=== PATIENT | male | born 1995 | race Caucasian/White ===

== ENCOUNTER 2021-12-04 09:56 | Emergency (ER) | payer MEDICAID, SELFPAY ==
[2021-12-04 10:22] VITALS: BP 138/66; PULSE 64; RESP 16; TEMP 36.6; O2SAT 97; BMI 24.6
[2021-12-04 10:48] LABS: IDNOW Serial# 9DD0AD1C; Strep A Nucleic Acid Negative (Negative)
[2021-12-04 10:56] LABS: COVID-19 Test Negative (Negative)
--- NOTE | 2021-12-04 17:42 | ED.URI ---
HPI - URI/Sore Throat General Chief Complaint: Upper Respiratory Symptoms Stated Complaint: sore throat dry mouth Time Seen by Provider: 12/04/21 11:33 History of Present Illness HPI Narrative: Patient complains of sore throat with mild pain on swallowing for 2 weeks, he otherwise denies any fever or chills or difficulty breathing, no difficulty swallowing just pain on swallowing Related Data Previous Rx's Medication Instructions Recorded cetirizine 10 mg tablet 10 mg PO DAILY PRN #10 tab 12/04/21 penicillin V potassium 500 mg 1,000 mg PO BID 10 Days #40 tab 12/04/21 tablet prednisone 20 mg tablet 60 mg PO DAILY 4 Days #12 tab 12/04/21 Allergies Allergy/AdvReac Type Severity Reaction Status Date / Time No Known Allergies Allergy Verified 12/04/21 11:34 Review of Systems Review of Systems: Positive for sore throat, negatives are no fever no chills no dizziness no weakness no difficulty breathing or swallowing but pain on swallowing no stiff neck no chest pain no shortness of breath no abdominal pain no nausea vomiting no skin rash Yes all other systems are reviewed and are negative [facility] Past Medical History [facility] Narrative: Patient is a smoker Source: nursing notes reviewed Social History Social History Advance Directives: No Advance Directives Information Provided: No Physical Exam Vital Signs: Vital Signs: Last Vital Signs Temp 98 F 12/04/21 10:22 Pulse 64 12/04/21 10:22 Resp 16 12/04/21 10:22 BP 138/66 12/04/21 10:22 Pulse Ox 97 12/04/21 10:22 BMI result Body Mass Index 24.6 General appearance is no acute distress comfortable speaking full sentences relaxed and cooperative The pharynx is red with mildly swollen tonsils no exudate mucous membranes are moist, uvula is midline, voice is normal There is no problems swallowing The neck no masses palpated no lymphadenopathy Chest is clear to auscultation bilateral Heart no murmur Extremities full range of motion x4x Course Course Course Narrative: Well-appearing patient with negative COVID test and negative strep test but very concerned that he may have strep and may need antibiotics is given prescription for antibiotic, steroid for symptomatic relief and advised to follow with primary doctor if symptoms do not resolve MDM - URI/Sore Throat Lab Data Labs: Lab Results 12/04/21 12/04/21 Range/Units 10:31 10:31 COVID-19 (VICKIE) Negative (Negative) COVID-19 Clin Com See Note S. pyogenes GrpA JOVANNI Negative (Negative) Discharge Plan Discharge Clinical Impression: Pharyngitis Patient Disposition: Home, Self-Care Additional Instructions: Your throat was red so we are treating with antibiotic penicillin for possible infection and steroids to reduce inflammation as well as allergy medicines to cover all bases Because or smoker these symptoms continued despite treatment you may need to follow with the primary care doctor for referral to a specialist Return any time any worse condition or concerns Prescriptions: New penicillin V potassium 500 mg tablet 1,000 mg PO BID 10 Days Qty: 40 RF: 0 prednisone 20 mg tablet 60 mg PO DAILY 4 Days Qty: 12 RF: 0 cetirizine 10 mg tablet 10 mg PO DAILY PRN (Reason: allergy symptoms) Qty: 10 RF: 0 Stand Alone Forms: Work/School Release Discharge Date/Time: 12/04/21 12:48
== END 2021-12-04 12:48 | disposition home or self-care (01) ==
LOC: HO.ED 12:01
PROVIDERS: Emergency Provider Emergency Medicine
DX: J02.9 Acute pharyngitis, unspecified (principal); Z20.822 Contact with and (suspected) exposure to COVID-19; F17.200 Nicotine dependence, unspecified, uncomplicated
CPT/HCPCS: 87635; 87651; 99281; 99282; 99283

== ENCOUNTER 2021-12-08 23:35 | Emergency (ER) | payer MEDICAID, SELFPAY ==
--- NOTE | ~2021-12-08 | XR_ITS ---
EXAMINATION: XR CHEST CLINICAL INFORMATION: Chest pain COMPARISON: 03/22/2021 TECHNIQUE: Frontal view of the chest was obtained. FINDINGS: The lungs are well expanded. There is no focal consolidation, edema, or effusion. No pneumothorax. The cardiomediastinal silhouette is within normal limits. No acute osseous abnormality. XR/XR chest 1V IMPRESSION: Clear lungs.
[2021-12-09 00:05] VITALS: BP 117/68; PULSE 70; RESP 20; O2SAT 95; BMI 26.6
[2021-12-09 02:24] VITALS: BP 118/70; PULSE 72; RESP 16; O2SAT 95
--- NOTE | 2021-12-09 03:23 | ECG_ITS ---
Test Reason : CHEST PAIN Blood Pressure : / mmHG Vent. Rate : 064 BPM Atrial Rate : 064 BPM P-R Int : 138 ms QRS Dur : 088 ms QT Int : 394 ms P-R-T Axes : 053 058 032 degrees QTc Int : 406 ms Normal sinus rhythm Early repolarization Normal ECG No previous ECGs available Referred By: Talia Rubio Electronically Signed By:Rayshawn Robbins
--- NOTE | 2021-12-09 03:24 | ED.CHESTPAIN ---
HPI - Chest Pain General Chief Complaint: Chest Pain Stated Complaint: Chest pain Time Seen by Provider: 12/09/21 00:58 History of Present Illness HPI narrative: Patient is 26-year-old male presents today having chest pain. The chest pain is worse when he turns his head to the right. It is associated with movement of the right arm. There is no chest pain with movement of his head to the left. No pain with movement of the left arm. No fever no chills. No nausea no vomiting. No focal weakness. No history of diabetes, hypertension, high cholesterol, smoking, [place]. patient is from home. Related Data Previous Rx's Medication Instructions Recorded cetirizine 10 mg tablet 10 mg PO DAILY PRN #10 tab 12/04/21 penicillin V potassium 500 mg 1,000 mg PO BID 10 Days #40 tab 12/04/21 tablet prednisone 20 mg tablet 60 mg PO DAILY 4 Days #12 tab 12/04/21 ibuprofen 400 mg tablet 400 mg PO Q6H PRN #20 tab 12/09/21 Allergies Allergy/AdvReac Type Severity Reaction Status Date / Time No Known Allergies Allergy Verified 12/04/21 11:34 Review of Systems Review of Systems: No cough no congestion or upper respiratory symptoms Positive chest pain with movement of the right arm or turning his head to the right. No shortness of breath no diaphoresis All system reviewed otherwise negative Yes all other systems are reviewed and are negative [facility] Past Medical History Attestation statement: The following information was validated with the patient. Social History Social History Advance Directives: No Physical Exam Vital Signs: Vital Signs: Last Vital Signs Pulse 72 12/09/21 02:24 Resp 16 12/09/21 02:24 BP 118/70 12/09/21 02:24 Pulse Ox 95 12/09/21 02:24 BMI result Body Mass Index 26.6 Appearance: Alert. Oriented X3. No acute distress. Eyes: Pupils equal, round and reactive to light. ENT: Pharynx normal. Neck: Normal inspection. Neck supple. No lymph nodes noted. No crepitus CVS: Normal heart rate and rhythm. Pulses normal. Normal S1 and S2. Chest pain reproducible with Dr. Respiratory: No respiratory distress. Breath sounds normal. No Wheezing. No rales Abdomen: Soft and nontender. No rigidity. No distention. good BS x4 Skin: Skin warm and dry. Normal skin color. Normal skin turgor. Extremities: No lower extremity edema. Neurovascular intact to all extremities. No Lacerations. No Rash Neuro: Oriented X 3. No motor deficit. No sensory deficit. Moving all extermities. No slurred speech MDM - Chest Pain MDM Narrative Medical decision making narrative: Patient's chest x-ray showed no evidence of pneumonia pneumothorax. EKG showed a sinus pattern heart rate is 65 VT QRS QT within normal limits there is some early repolarization no acute ST segment elevations. Patient well-appearing pain atypical for ACS. No risk factors for PE. Will discharge patient home. Patient's labs from previous exam in. A strep test was negative. No evidence for strep pharyngitis. Will have patient take Motrin. Close follow-up on an outpatient basis. Medical Records Data Attestation: I reviewed the patient's medical records. Lab Data Attestation: I reviewed the patient's lab results. Discharge Plan Discharge Clinical Impression: Atypical chest pain Patient Disposition: Home, Self-Care Instructions: Chest Pain (ED) Prescriptions: New ibuprofen 400 mg tablet 400 mg PO Q6H PRN (Reason: pain) Qty: 20 RF: 0 No Action penicillin V potassium 500 mg tablet 1,000 mg PO BID 10 Days Qty: 40 RF: 0 prednisone 20 mg tablet 60 mg PO DAILY 4 Days Qty: 12 RF: 0 cetirizine 10 mg tablet 10 mg PO DAILY PRN (Reason: allergy symptoms) Qty: 10 RF: 0 Referrals: [facility] [Physician] - 2 days
== END 2021-12-09 04:55 | disposition home or self-care (01) ==
PROVIDERS: Emergency Provider Emergency Medicine Emergency Medical Services
DX: R07.89 Other chest pain (principal)
CPT/HCPCS: 71045; 93005; 99283; 99284

== ENCOUNTER 2022-11-08 15:46 | Emergency (ER) | payer MEDICAID, OTHER, SELFPAY ==
[2022-11-08 16:33] VITALS: BP 130/78; PULSE 112; RESP 18; TEMP 36.9; O2SAT 96; BMI 25.0
--- NOTE | 2022-11-08 16:36 | ED_ITS ---
HPI - Skin/Abscess/Foreign Bdy General Chief complaint: Skin/Abscess/Foreign Body Stated complaint: bump on head Time Seen by Provider: 11/08/22 18:55 Source: patient Mode of arrival: ambulatory Limitations: no limitations History of Present Illness HPI narrative: 27yoM who is Malagasy-speaking presenting to the ED c c/o a lump to his forehead for the past 7 years it has grown in the past week.? He also is requesting for COVID swab due to he was exposed to COVID/flu.? He reports that a person who just [facility] out [facility] he was around them and they are the ones that were positive for COVID possibly.? He denies any other symptoms related to this.? He reports he will also need a work note. complaint: abscess/boil Onset (ago): year(s) ( 7 years worse in the past week) Location: face ( forehead) Severity: mild Quality: aching Pain Consistency: constant Relieving factors: none Exacerbating factors: none and palpation Context: none Associated symptoms: denies other symptoms Treatments prior to arrival: none Related Data Previous Rx's Medication Instructions Recorded cetirizine 10 mg tablet 10 mg PO DAILY PRN allergy 12/04/21 symptoms #10 tabs penicillin V potassium 500 mg 1,000 mg PO BID 10 days #40 tabs 12/04/21 tablet prednisone 20 mg tablet 60 mg PO DAILY 4 days #12 tabs 12/04/21 ibuprofen 400 mg tablet 400 mg PO Q6H PRN pain #20 tabs 12/09/21 Allergies Allergy/AdvReac Type Severity Reaction Status Date / Time No Known Allergies Allergy Verified 12/04/21 11:34 Review of Systems Review of Systems: Constitutional : Denies history of same, Denies any other sites involved, Denies IV drug use, Denies history of MRSA, Denies swollen glands, Denies injury, Denies Fever, Denies Chills, + Sig Pain, Denies Systemic symptoms Cardiovascular : No Chest Pain, No SOB Respiratory : No Dyspnea Gastrointestinal : No abdominal pain Musculoskeletal : No Joint Swelling Skin : + abscess to forehead, No surrounding erythema, No skin laceration, No Foreign bodies, No spreading rash, Denies bites, Denies discharge, Neuro : No Weakness, No Numbness/tingling Psych : No SI/HI/thoughts of self injury Yes all other systems are reviewed and are negative PMFSH Past Medical History Attestation statement: The following information was validated with the patient. Source: old records reviewed and nursing notes reviewed Social History Social History Patient Tobacco Use Status: Never used Tobacco Advance Directives: No Advance Directives Information Provided: No Physical Exam Vital Signs: Vital Signs: Last Vital Signs Temp 98.5 F 11/08/22 16:33 Pulse 112 H 11/08/22 16:33 Resp 18 11/08/22 16:33 BP 130/78 11/08/22 16:33 Pulse Ox 96 11/08/22 16:33 O2 Del Method 11/08/22 16:33 BMI result Body Mass Index 25.0 vital signs have been reviewed as normal and appeared to be correct. Blood pressure normal Heart rate normal. Respiration rate normal. Temperature normal. Oxygen saturation normal. Appearance: Alert. Oriented X3. No acute distress. Head: Normal external exam. Normocephalic. Atraumatic. Eyes: PERRLA. EOMI. Conjunctiva and sclera normal. Eyelids normal. ENT: Pharynx normal. Uvula midline. Moist mucous membranes. Neck: Normal inspection. Neck supple. FROM. CVS: Normal heart rate and rhythm. Respiratory: No respiratory distress. Painless inspiration. Skin: Skin warm and dry. Normal skin color. Normal skin turgor. to the forehead patient appears to have a pimple/ abscess no surrounding erythema no streaking or purulent drainage. No signs of trauma. No additional rashes/lesions/lacerations noted. Extremities: No lower extremity edema. Extremities exhibit normal range of motion. Extremities nontender. Neuro: Oriented X 3. No motor deficit. No sensory deficit. Reflexes normal. Normal steady gait. No focal neuro deficits noted. Vascular: + radial pulses/+ 2 distal pedal pulses/+2 dorsalis pedis b/l. Normal cap refill. No cyanosis noted to upper extremity nails and lower extremity toes nails. Course Course Course Narrative: REBEL-16:40PM - 27yoM who is Malagasy-speaking presenting to the ED c c/o a lump to his forehead for the past 7 years it has grown in the past week. He also is requesting for COVID swab due to he was exposed to COVID/flu. He reports that a person who just [facility] he was around them and they are the ones that were positive for COVID possibly. He denies any other symptoms related to this. He reports he will also need a work note. Plan: Therefore COVID/flu swab ordered at this time. Patient can go to [facility] no imaging indicated appears that patient has a pimple/abscess to the forehead. Reevaluation(s) Reevaluation #1: patient was negative for COVID/ influenza. We were unable to give him the results due to he eloped before he can going to the [facility] room. Therefore he did not have an I&D of the abscess/ pimple to his forehead. Medical Decision Making Lab Data Labs: Lab Results 11/08/22 11/08/22 Range/Units 17:08 17:08 COVID-19 (VICKIE) Negative (Negative) COVID-19 Clin Com See Note Influenza Type A (JOVANNI) Negative (Negative) Influenza Type B (JOVANNI) Negative (Negative) Influenza A & B Note See Note Discharge Plan Discharge Clinical Impression: Abscess of skin or subcutaneous tissue Patient Disposition: Elopement Prescriptions: No Action penicillin V potassium 500 mg tablet 1,000 mg PO BID 10 Days Qty: 40 0RF prednisone 20 mg tablet 60 mg PO DAILY 4 Days Qty: 12 0RF cetirizine 10 mg tablet 10 mg PO DAILY PRN (Reason: allergy symptoms) Qty: 10 0RF ibuprofen 400 mg tablet 400 mg PO Q6H PRN (Reason: pain) Qty: 20 0RF Discharge Date/Time: 11/08/22 19:16
[2022-11-08 17:34] LABS: COVID-19 Test Negative (Negative); IDNOW Serial# 16C4AD1C; IDNOW Serial# BCCEAD1C; Influenza A Negative (Negative); Influenza B2 Negative (Negative)
== END 2022-11-08 19:16 | disposition left against medical advice (07) ==
PROVIDERS: Physician Assistant Medical; Emergency Provider Emergency Medicine
DX: L02.01 Cutaneous abscess of face (principal); Z79.899 Other long term (current) drug therapy; Z20.822 Contact with and (suspected) exposure to COVID-19
CPT/HCPCS: 87502; 87635; 99281; 99283

== ENCOUNTER 2023-08-25 09:03 | Emergency (ER) | payer MEDICAID, SELFPAY ==
[2023-08-25 09:31] VITALS: BP 116/53; PULSE 84; RESP 20; TEMP 36.7; O2SAT 97; BMI 25.9
[2023-08-25 10:51] LABS: MANUAL DIFF FLAG NO
[2023-08-25 10:52] LABS: Basophils Percent Auto 0.4 % (0-2); Eosinophils Absolute Auto 0.1 X10*3/uL (0.0-0.4); Eosinophils Percent Auto 1.3 % (0-4); Hematocrit 43.3 % (42.0-52.0); Hemoglobin 14.4 g/dl (14.0-18.0); Imm Gran Abs Auto 0.03 X10*3/uL (0.00-0.03); Imm Gran Pct Auto 0.4 % (0.0-0.4); Lymphocytes Absolute Auto 1.9 X10*3/uL (1.2-4.9); Lymphocytes Percent Auto 24.2 % (20-40); Mean Corpuscular HGB Conc 33.3 g/dl (31.0-36.0); Mean Corpuscular Hemoglobin 28.2 pg (27.0-33.0); Mean Corpuscular Volume 84.9 fL (80.0-98.0); Mean Platelet Volume 9.5 fL (9.4-12.4); Monocytes Absolute Auto 0.7 X10*3/uL (0.1-1.2); Monocytes Percent Auto 9.4 % (2-11); Neutrophils Absolute Auto 5.1 x10*3/uL (2.0-8.3); Neutrophils Percent Auto 64.3 % (45-73); Platelet Count 222 X10*3/uL (160-400); Red Cell Distribution Width 14.8 % (11.0-16.0); White Blood Count 7.9 X10*3/uL (4.8-10.8)
[2023-08-25 11:17] LABS: Alanine Aminotransferase 83 U/L (0-40); Albumin Level 4.2 g/dL (3.5-5.0); Alkaline Phosphatase 98 U/L (39-117); Anion Gap 13 (12-20); Aspartate Amino Transferase 37 U/L (5-37); Bilirubin Direct 0.1 mg/dL (0.0-0.5); Bilirubin Total 0.4 mg/dL (0.0-1.0); Blood Urea Nitrogen 23 mg/dL (9-16); Calcium 9.4 mg/dL (8.4-10.2); Carbon Dioxide 24 mmol/L (22-29); Chloride 106 mmol/L (96-108); Creatinine Clr Calc Pharmacy 95.2; Estimated Glomerular Filt Rate > 60; Glucose Random 123 mg/dL (60-115); Lipase 22 U/L (8-78); Potassium 4.1 mmol/L (3.3-5.1); Sodium 139 mmol/L (135-145); Total Protein 6.9 g/dL (6.5-8.0)
[2023-08-25 12:47] LABS: Magnesium 2.4 mg/dL (1.6-2.6)
--- NOTE | 2023-08-25 12:54 | ED_ITS ---
HPI - General Adult General Chief complaint: Abdominal Pain Stated complaint: vomiting and diharea Time Seen by Provider: 08/25/23 12:50 Source: patient Mode of arrival: ambulatory Limitations: no limitations History of Present Illness HPI narrative: This is a 28 years old male presented to the emergency department with chief complaint of nausea vomiting diarrhea. Symptoms started about 2 days ago. Onset (ago): day(s) (2) Radiation: non-radiation Severity: moderate Quality: burning Pain Consistency: constant Relieving factors: none Exacerbating factors: none Related Data Previous Rx's Medication Instructions Recorded cetirizine 10 mg tablet 10 mg PO DAILY PRN allergy 12/04/21 symptoms #10 tabs penicillin V potassium 500 mg 1,000 mg (2 x 500 mg) PO BID 10 12/04/21 tablet days #40 tabs prednisone 20 mg tablet 60 mg (3 x 20 mg) PO DAILY 4 days 12/04/21 #12 tabs ibuprofen 400 mg tablet 400 mg PO Q6H PRN pain #20 tabs 12/09/21 Allergies Allergy/AdvReac Type Severity Reaction Status Date / Time No Known Allergies Allergy Verified 08/25/23 09:33 Review of Systems 2 Gastrointestinal: Gastrointestinal: Reports other (diarrhea and vomiting) Neurologic: Reports Abnormal speech present [facility] Past Medical History [facility] Narrative: Denies any medical problems Social History Social History Patient Tobacco Use Status: Never used Tobacco Advance Directives: No Advance Directives Information Provided: No Physical Exam ED Vital Signs: Vital Signs - 24 hr 08/25/23 09:31 Temperature 98.1 F Pulse Rate 84 Respiratory Rate 20 Blood Pressure 116/53 L Pulse Oximetry 97 Oxygen Delivery Method Room Air BMI result Body Mass Index 25.9 Const General: cooperative Nutritional Appearance: well nourished Orientation/consciousness: patient oriented x3 Limitations: no limitations HENMT Head: Yes normal to inspection Ears: hearing grossly normal bilaterally Face and sinus: Yes normal facial exam Mouth: Normal oral and palatal mucosa present Throat: Yes posterior oropharynx normal Neck Neck: Yes normal visual inspection Chest Chest palpation & inspection: normal inspection of the chest Resp Effort & Inspection: normal respiratory effort Cardio Jugular venous distension: no JVD Rate: regular rate Rhythm: regular rhythm GI Inspection: Yes normal to inspection Palpation (GI): Soft to palpation, not firm, nontender and no guarding Percussion: Yes normal to percussion Auscultation: normal bowel sounds Skin General skin exam: no rashes or lesions noted Lesions: no lesions Rashes: no rashes Wounds: no wounds Neuro General: patient oriented x3 Cranial nerves: Yes CN's II-XII intact bilaterally Cognition (Neuro): normal cognition Speech: Abnormal speech present Extrem General: Yes full ROM, Yes capillary refill normal and Yes normal exam except as noted Course Reevaluation(s) Reevaluation #1: Re-examination of the patient this time is doing much better is tolerating p.o. well anticipate discharge Time: 14:20 Medications Administered Discontinued Medications Generic Name Dose Route Start Last Admin Trade Name Freq PRN Reason Stop Dose Admin Diphenhydramine HCl 25 mg 08/25/23 12:53 08/25/23 13:20 Diphenhydramine Hcl 50 Mg/Ml Vial IVPUSH 08/25/23 12:54 25 mg ONCE ONE Administration Sodium Chloride 1,000 mls @ 999 mls/hr 08/25/23 13:00 08/25/23 13:14 Ns IVCONT 08/25/23 14:00 999 mls/hr .Q1H1M MANOLO Administration Metoclopramide HCl 10 mg 08/25/23 12:53 08/25/23 13:19 Metoclopramide Hcl 10 Mg/2 Ml Vial IVPUSH 08/25/23 12:54 10 mg ONCE ONE Administration Medical Decision Making Medical Decision Making [facility] Narrative: presented with nausea and vomiting will get labs,will give iv hydration and reasses Differential Diagnosis Differential Diagnoses: The differential diagnosis associated with the presentation includes viral illness/gastroenteritis Admission/Observation Consideration of admission/observation: Escalation of care including admission/observation considered Lab Data [facility] Lab Attestation statement: I reviewed the patient's lab results. 08/25/23 10:47 08/25/23 10:47 Labs: Lab Results 08/25/23 Range/Units 10:47 WBC 7.9 (4.8-10.8) X10*3/uL RBC 5.10 (4.60-5.80) X10*6/uL Hgb 14.4 (14.0-18.0) g/dl Hct 43.3 (42.0-52.0) % MCV 84.9 (80.0-98.0) fL MCH 28.2 (27.0-33.0) pg MCHC 33.3 (31.0-36.0) g/dl RDW 14.8 (11.0-16.0) % Plt Count 222 (160-400) X10*3/uL MPV 9.5 (9.4-12.4) fL Immature Gran % (Auto) 0.4 (0.0-0.4) % Neut % (Auto) 64.3 (45-73) % Lymph % (Auto) 24.2 (20-40) % [place] % (Auto) 9.4 (2-11) % Eos % (Auto) 1.3 (0-4) % Baso % (Auto) 0.4 (0-2) % Lymph # (Auto) 1.9 (1.2-4.9) X10*3/uL [place] # (Auto) 0.7 (0.1-1.2) X10*3/uL Eos # (Auto) 0.1 (0.0-0.4) X10*3/uL Baso # (Auto) 0.0 (0.0-0.2) X10*3/uL Abs Immat Gran (auto) 0.03 (0.00-0.03) X10*3/uL Absolute Neuts (auto) 5.1 (2.0-8.3) x10*3/uL Absolute Nucleated RBC 0.000 (0.0-0.012) X10*3/uL Nucleated RBC % (auto) 0.0 (0.0-0.2) /100WBC Sodium 139 (135-145) mmol/L Potassium 4.1 (3.3-5.1) mmol/L Chloride 106 (96-108) mmol/L Carbon Dioxide 24 (22-29) mmol/L Anion Gap 13 (12-20) BUN 23 H (9-16) mg/dL Creatinine 1.07 (0.5-1.4) mg/dL Estim Creat Clear Calc 95.2 Estimated GFR > 60 Random Glucose 123 H (60-115) mg/dL Calcium 9.4 (8.4-10.2) mg/dL Magnesium 2.4 (1.6-2.6) mg/dL Total Bilirubin 0.4 (0.0-1.0) mg/dL Direct Bilirubin 0.1 (0.0-0.5) mg/dL AST 37 (5-37) U/L ALT 83 H (0-40) U/L Alkaline Phosphatase 98 (39-117) U/L Total Protein 6.9 (6.5-8.0) g/dL Albumin 4.2 (3.5-5.0) g/dL Lipase 22 (8-78) U/L Discharge Plan Discharge Clinical Impression: Vomiting, Diarrhea Patient Disposition: Home, Self-Care Instructions: Acute Nausea and Vomiting (ED), Acute Diarrhea (ED) Additional Instructions: Follow-up with your primary care physician, return to the emergency room if you are worse, same liquid diet for 24 hour Prescriptions: No Action penicillin V potassium 500 mg tablet 1,000 mg PO BID 10 Days Qty: 40 0RF prednisone 20 mg tablet 60 mg PO DAILY 4 Days Qty: 12 0RF cetirizine 10 mg tablet 10 mg PO DAILY PRN (Reason: allergy symptoms) Qty: 10 0RF ibuprofen 400 mg tablet 400 mg PO Q6H PRN (Reason: pain) Qty: 20 0RF Referrals: Lorenzo Sparks MD [Emergency Provider] - 2 days Interventions: ED Discharge Assessment Last Done: 08/25/23 14:30 Discharge Date/Time: 08/25/23 14:31
[2023-08-25] MEDS: 0.9 % Sodium Chloride 1,000 ML 999 ML IVCONT (13:14)
[2023-08-25] MEDS: Metoclopramide HCl 10 MG/2 ML VIAL IVPUSH (13:19)
[2023-08-25] MEDS: diphenhydrAMINE HCL 50 MG/ML VIAL 25 MG IVPUSH (13:20)
== END 2023-08-25 14:31 | disposition home or self-care (01) ==
PROVIDERS: Physician Assistant; Emergency Provider Emergency Medicine
DX: R11.2 Nausea with vomiting, unspecified (principal); R19.7 Diarrhea, unspecified; Z79.899 Other long term (current) drug therapy
CPT/HCPCS: 36415; 80048; 80076; 83690; 83735; 85025; 96374; 96375; 99283; 99284; J1200; J2765

== ENCOUNTER 2023-10-13 11:57 | Emergency (ER) | payer MEDICAID, SELFPAY ==
[2023-10-13 12:17] VITALS: BP 133/80; PULSE 106; RESP 20; TEMP 36.8; O2SAT 97; BMI 26.5
--- NOTE | 2023-10-13 12:18 | ED_ITS ---
HPI - Abdominal Pain General Chief Complaint: Abdominal Pain Stated Complaint: Stomach Pain Diarrhea Vomiting Time Seen by Provider: 10/13/23 14:54 Source: patient Mode of arrival: ambulatory Limitations: no limitations History of Present Illness HPI narrative: 28 yo male w/ no known medical history here with 4 days of middle abdominal pain, vomiting, diarrhea. Recently was in [place] and had lots of different foods. No URI symptoms, black or bloody stools, fevers, chills, chest pain, diff breathing Related Data Previous Rx's Medication Instructions Recorded cetirizine 10 mg tablet 10 mg PO DAILY PRN allergy 12/04/21 symptoms #10 tabs penicillin V potassium 500 mg 1,000 mg (2 x 500 mg) PO BID 10 12/04/21 tablet days #40 tabs prednisone 20 mg tablet 60 mg (3 x 20 mg) PO DAILY 4 days 12/04/21 #12 tabs ibuprofen 400 mg tablet 400 mg PO Q6H PRN pain #20 tabs 12/09/21 Allergies Allergy/AdvReac Type Severity Reaction Status Date / Time No Known Allergies Allergy Verified 10/13/23 12:17 Review of Systems Review of Systems Yes all other systems are reviewed and are negative Constitutional: Reports no additional constitutional complaints, Denies body ache(s), Denies chills, Denies fever(s), Denies headache(s) and Denies weakness Eyes: Reports no additional eye complaints and Denies change in vision Reports system reviewed and no additional complaints, except as documented, Denies dizziness, Denies headache(s), Denies nasal congestion, Denies nasal discharge and Denies neck pain Cardiovascular: Reports no additional cardiovascular complaints, Denies chest pain, Denies leg edema and Denies dyspnea Respiratory: Reports no additional respiratory complaints, Denies cough and Denies dyspnea Gastrointestinal: Reports no additional gastrointestinal complaints, Reports abdominal pain, Reports diarrhea, Denies nausea and Reports vomiting Genitourinary: Denies urinary incontinence Musculoskeletal: Reports no additional musculoskeletal complaints, Denies back pain, Denies arthralgias, Denies joint swelling, Denies neck pain, Denies numbness and Denies tingling Skin/Breast: Reports system reviewed and no additional complaints, except as docu and Denies rash Reports system reviewed and no additional complaints, except as documented, Denies dizziness, Denies headache(s), Denies numbness, Denies tingling and Denies weakness [facility] Past Medical History Attestation statement: The following information was validated with the patient. Source: old records reviewed and nursing notes reviewed Social History Patient Tobacco Use Status: Never used Tobacco Physical Exam ED Vital Signs: Vital Signs - 24 hr 10/13/23 12:17 Temperature 98.2 F Pulse Rate 106 H Respiratory Rate 20 Blood Pressure 133/80 Pulse Oximetry 97 Oxygen Delivery Method Room Air BMI result Body Mass Index 26.5 Const General: cooperative, healthy appearing, comfortable and no acute distress Orientation/consciousness: patient oriented x3 Limitations: no limitations HENMT Head: Yes normal to inspection Eyes General: appearance normal, both eyes and all related structures Neck Neck: Yes normal visual inspection Chest Chest palpation & inspection: normal inspection of the chest Resp Effort & Inspection: normal respiratory effort Neuro General: patient oriented x3 and no focal motor deficits Cognition (Neuro): normal cognition Gait exam (Neuro): Normal gait present Course Course Course Narrative: This is a rapid medical exam. Deferred additional HPI, ROS, PE to primary provider. 28 yo male w/ no known medical history here with 4 days of middle abdominal pain, vomiting, diarrhea. Recently was in [place] and had lots of different foods. Will obtain labs, UA, covid testing. MILAGROS morris given in triage VSS Reevaluation(s) Reevaluation #1: [id number]-Patient wanted to leave before abdominal exam and possible imaging. He tells me he has plans on going to another hospital. He does not want to wait any longer in the waiting room. He will leave against medical advice. Explained with the table lever operator that we would recommend that he have an abdominal exam as he may need further imaging to rule out any abdominal emergency. Patient is aware of this and will plan on leaving Medical Decision Making Medical Decision Making MDM Narrative: 28 yo male w/ no known medical history here with 4 days of middle abdominal pain, vomiting, diarrhea. Recently was in [place] and had lots of different foods. No URI symptoms, black or bloody stools, fevers, chills, chest pain, diff breathing -had labs, covid screen ordered in triage. UA was ordered but not provided. Deferred PE Differential Diagnosis Differential Diagnoses: The differential diagnosis associated with the presentation includes Gastroenteritis, viral syndrome, Consider appendicitis, diverticulitis, infectious diarrhea Admission/Observation Consideration of admission/observation: Escalation of care including admission/observation considered Needs abdominal exam, possible imaging, if abdominal emergency may need surgical consultation and or admission Lab Data MDM Lab Attestation statement: I reviewed the patient's lab results. 10/13/23 12:28 10/13/23 12:28 Labs: Lab Results 10/13/23 Range/Units 12:28 WBC 7.2 (4.8-10.8) X10*3/uL RBC 5.21 (4.60-5.80) X10*6/uL Hgb 14.6 (14.0-18.0) g/dl Hct 44.1 (42.0-52.0) % MCV 84.6 (80.0-98.0) fL MCH 28.0 (27.0-33.0) pg MCHC 33.1 (31.0-36.0) g/dl RDW 13.9 (11.0-16.0) % Plt Count 197 (160-400) X10*3/uL MPV 9.5 (9.4-12.4) fL Immature Gran % (Auto) 0.1 (0.0-0.4) % Neut % (Auto) 52.8 (45-73) % Lymph % (Auto) 35.1 (20-40) % Hodgeman % (Auto) 10.0 (2-11) % Eos % (Auto) 1.4 (0-4) % Baso % (Auto) 0.6 (0-2) % Lymph # (Auto) 2.5 (1.2-4.9) X10*3/uL Hodgeman # (Auto) 0.7 (0.1-1.2) X10*3/uL Eos # (Auto) 0.1 (0.0-0.4) X10*3/uL Baso # (Auto) 0.0 (0.0-0.2) X10*3/uL Abs Immat Gran (auto) 0.01 (0.00-0.03) X10*3/uL Absolute Neuts (auto) 3.8 (2.0-8.3) x10*3/uL Absolute Nucleated RBC 0.000 (0.0-0.012) X10*3/uL Nucleated RBC % (auto) 0.0 (0.0-0.2) /100WBC Sodium 140 (135-145) mmol/L Potassium 4.2 (3.3-5.1) mmol/L Chloride 111 H (96-108) mmol/L Carbon Dioxide 25 (22-29) mmol/L Anion Gap 8 L (12-20) BUN 18 H (9-16) mg/dL Creatinine 0.88 (0.5-1.4) mg/dL Estim Creat Clear Calc 119.8 Estimated GFR > 60 Random Glucose 95 (60-115) mg/dL Calcium 9.0 (8.4-10.2) mg/dL Total Bilirubin 0.2 (0.0-1.0) mg/dL Direct Bilirubin < 0.2 (0.0-0.5) mg/dL AST 20 (5-37) U/L ALT 23 (0-40) U/L Alkaline Phosphatase 87 (39-117) U/L Total Protein 6.9 (6.5-8.0) g/dL Albumin 4.1 (3.5-5.0) g/dL Lipase 21 (8-78) U/L COVID-19 (VICKIE) Negative (Negative) COVID-19 Clin Com See Note Tests considered The following testing was considered but not selected: May need CT AP based on clinical exam-patient wanted to leave before this could be determined Medications Administered Discontinued Medications Generic Name Dose Route Start Last Admin Trade Name Freq PRN Reason Stop Dose Admin Ondansetron HCl 4 mg 10/13/23 12:12 10/13/23 12:19 Ondansetron Odt 4 Mg Tab.Rapdis TRANSLINGU 10/13/23 12:13 4 mg ONCE ONE Administration Discharge Plan Discharge Clinical Impression: Abdominal pain Patient Disposition: Left Against Medical Advice Instructions: Abdominal Pain (ED), Against Medical Advice (ED) Additional Instructions: We recommend that you stay and have a physical exam. You may need additional imaging of your abdomen. You declined this as you no longer wanted to wait. Le recomendamos que se quede y se darshan un examen f?sico. Es posible que necesite im?genes adicionales de [place] abdomen. Lo rechazaste porque ya no quer?as esperar. Prescriptions: No Action penicillin V potassium 500 mg tablet 1,000 mg PO BID 10 Days Qty: 40 0RF prednisone 20 mg tablet 60 mg PO DAILY 4 Days Qty: 12 0RF cetirizine 10 mg tablet 10 mg PO DAILY PRN (Reason: allergy symptoms) Qty: 10 0RF ibuprofen 400 mg tablet 400 mg PO Q6H PRN (Reason: pain) Qty: 20 0RF Referrals: ED Physician,Generic [Physician] - 1 week Stand Alone Forms: Against Medical Advice Interventions: ED Discharge Assessment Last Done: 10/13/23 14:52 Print Language: Russian
[2023-10-13] MEDS: Ondansetron ODT 4 MG TAB.RAPDIS TRANSLINGU (12:19)
[2023-10-13 12:33] LABS: Basophils Percent Auto 0.6 % (0-2); Eosinophils Absolute Auto 0.1 X10*3/uL (0.0-0.4); Eosinophils Percent Auto 1.4 % (0-4); Hematocrit 44.1 % (42.0-52.0); Hemoglobin 14.6 g/dl (14.0-18.0); Imm Gran Abs Auto 0.01 X10*3/uL (0.00-0.03); Imm Gran Pct Auto 0.1 % (0.0-0.4); Lymphocytes Absolute Auto 2.5 X10*3/uL (1.2-4.9); Lymphocytes Percent Auto 35.1 % (20-40); MANUAL DIFF FLAG NO; Mean Corpuscular HGB Conc 33.1 g/dl (31.0-36.0); Mean Corpuscular Volume 84.6 fL (80.0-98.0); Mean Platelet Volume 9.5 fL (9.4-12.4); Monocytes Absolute Auto 0.7 X10*3/uL (0.1-1.2); Neutrophils Absolute Auto 3.8 x10*3/uL (2.0-8.3); Neutrophils Percent Auto 52.8 % (45-73); Platelet Count 197 X10*3/uL (160-400); Red Blood Count 5.21 X10*6/uL (4.60-5.80); Red Cell Distribution Width 13.9 % (11.0-16.0); White Blood Count 7.2 X10*3/uL (4.8-10.8)
[2023-10-13 12:49] LABS: COVID-19 Test Negative (Negative); IDNOW Serial# 9DB6401D
[2023-10-13 12:51] LABS: Alanine Aminotransferase 23 U/L (0-40); Albumin Level 4.1 g/dL (3.5-5.0); Alkaline Phosphatase 87 U/L (39-117); Anion Gap 8 (12-20); Aspartate Amino Transferase 20 U/L (5-37); Bilirubin Direct < 0.2 mg/dL (0.0-0.5); Bilirubin Total 0.2 mg/dL (0.0-1.0); Blood Urea Nitrogen 18 mg/dL (9-16); Carbon Dioxide 25 mmol/L (22-29); Chloride 111 mmol/L (96-108); Creatinine Clr Calc Pharmacy 119.8; Estimated Glomerular Filt Rate > 60; Glucose Random 95 mg/dL (60-115); Lipase 21 U/L (8-78); Potassium 4.2 mmol/L (3.3-5.1); Sodium 140 mmol/L (135-145); Total Protein 6.9 g/dL (6.5-8.0)
== END 2023-10-13 15:04 | disposition left against medical advice (07) ==
LOC: HO.ED 14:56
PROVIDERS: Nurse Practitioner Family; Emergency Provider Emergency Medicine
DX: R10.9 Unspecified abdominal pain (principal); R11.10 Vomiting, unspecified; R19.7 Diarrhea, unspecified; Z11.52 Encounter for screening for COVID-19
CPT/HCPCS: 80048; 80076; 83690; 85025; 87635; 99282; 99283

== ENCOUNTER 2023-11-15 23:57 | Emergency (ER) | payer MEDICAID, SELFPAY ==
--- NOTE | 2023-11-16 | ECG_ITS ---
Test Reason : TACHYCARDIA Blood Pressure : / mmHG Vent. Rate : 103 BPM Atrial Rate : 103 BPM P-R Int : 128 ms QRS Dur : 082 ms QT Int : 324 ms P-R-T Axes : 072 056 033 degrees QTc Int : 424 ms Sinus tachycardia Otherwise normal ECG When compared with ECG of 08-DEC-2021 23:45, Vent. rate has increased BY 39 BPM Referred By: Generic ED Physician Electronically Signed By:VENITA CANO
[2023-11-16 00:05] VITALS: BP 135/82; PULSE 142; RESP 16; TEMP 36.9; O2SAT 96; BMI 26.9
[2023-11-16 00:33] LABS: Basophils Percent Auto 0.3 % (0-2); Eosinophils Percent Auto 0.4 % (0-4); Hematocrit 45.9 % (42.0-52.0); Hemoglobin 15.1 g/dl (14.0-18.0); Imm Gran Abs Auto 0.03 X10*3/uL (0.00-0.03); Imm Gran Pct Auto 0.3 % (0.0-0.4); Lymphocytes Absolute Auto 3.1 X10*3/uL (1.2-4.9); Lymphocytes Percent Auto 29.3 % (20-40); MANUAL DIFF FLAG NO; Mean Corpuscular HGB Conc 32.9 g/dl (31.0-36.0); Mean Corpuscular Hemoglobin 27.5 pg (27.0-33.0); Mean Corpuscular Volume 83.5 fL (80.0-98.0); Mean Platelet Volume 9.4 fL (9.4-12.4); Monocytes Absolute Auto 0.8 X10*3/uL (0.1-1.2); Monocytes Percent Auto 7.5 % (2-11); Neutrophils Absolute Auto 6.5 x10*3/uL (2.0-8.3); Neutrophils Percent Auto 62.2 % (45-73); Platelet Count 276 X10*3/uL (160-400); Red Cell Distribution Width 13.6 % (11.0-16.0); White Blood Count 10.5 X10*3/uL (4.8-10.8)
[2023-11-16 00:46] LABS: Alanine Aminotransferase 26 U/L (0-40); Albumin Level 4.9 g/dL (3.5-5.0); Alkaline Phosphatase 99 U/L (39-117); Anion Gap 17 (12-20); Aspartate Amino Transferase 23 U/L (5-37); Bilirubin Direct 0.2 mg/dL (0.0-0.5); Bilirubin Total 0.5 mg/dL (0.0-1.0); Blood Urea Nitrogen 21 mg/dL (9-16); Calcium 9.9 mg/dL (8.4-10.2); Carbon Dioxide 23 mmol/L (22-29); Chloride 105 mmol/L (96-108); Creatinine Clr Calc Pharmacy 90.2; Estimated Glomerular Filt Rate > 60; Glucose Random 111 mg/dL (60-115); Lipase 11 U/L (8-78); Potassium 3.6 mmol/L (3.3-5.1); Sodium 141 mmol/L (135-145)
--- NOTE | 2023-11-16 00:58 | ED.NAVMDI ---
HPI - Nausea/Vomiting/Diarrhea General Chief complaint: Nausea/Vomiting/Diarrhea Stated complaint: vomiting, diaharea Time Seen by Provider: 11/16/23 00:41 Source: patient, family and lang interpreter Mode of arrival: ambulatory Limitations: no limitations History of Present Illness HPI Narrative: 28-year-old male only Palestinian speaking presented for evaluation of nausea, vomiting, and diarrhea for 4 days, patient's symptoms started after eating pork and normally he does not eat pork shortly after started with nonbloody watery diarrhea, abdominal pain only when he vomits and the pain is localized to the epigastric area no lower abdominal pain, reports many family member are sick with same symptoms. No past abdominal surgery. Related Data Previous Rx's Medication Instructions Recorded cetirizine 10 mg tablet 10 mg PO DAILY PRN allergy 12/04/21 symptoms #10 tabs penicillin V potassium 500 mg 1,000 mg (2 x 500 mg) PO BID 10 12/04/21 tablet days #40 tabs prednisone 20 mg tablet 60 mg (3 x 20 mg) PO DAILY 4 days 12/04/21 #12 tabs ibuprofen 400 mg tablet 400 mg PO Q6H PRN pain #20 tabs 12/09/21 Allergies Allergy/AdvReac Type Severity Reaction Status Date / Time No Known Allergies Allergy Verified 10/13/23 12:17 Review of Systems Review of Systems: All other systems are reviewed and are negative Constitutional: Reports as per HPI and Reports no additional constitutional complaints Eyes: Reports as per HPI and Reports no additional eye complaints Reports system reviewed and no additional complaints, except as documented Cardiovascular: Reports as per HPI and Reports no additional cardiovascular complaints Respiratory: Reports as per HPI and Reports no additional respiratory complaints Gastrointestinal: Reports as per HPI and Reports no additional gastrointestinal complaints Genitourinary: Reports no additional female genitourinary complaints Musculoskeletal: Reports no additional musculoskeletal complaints Skin/Breast: Reports system reviewed and no additional complaints, except as docu Psychiatric: Reports no additional psychiatric complaints Endocrine: Reports no additional endocrine complaints Hematologic/Lymphatic: Reports no additional hematologic/lymphatic complaints Allergic/Immunologic: Reports no additional allergic/immunologic complaints Reports system reviewed and no additional complaints, except as documented and Reports Abnormal speech present [facility] Social History Social History Patient Tobacco Use Status: Never used Tobacco Smoked in Last 30 Days: Yes Substance Use Type: Marijuana Substance Use Frequency: Daily Advance Directives: No Advance Directives Information Provided: Yes Physical Exam Vital Signs: Vital Signs: Last Vital Signs Temp 98.4 F 11/16/23 00:05 Pulse 142 H 11/16/23 00:05 Resp 16 11/16/23 00:05 BP 135/82 11/16/23 00:05 Pulse Ox 96 11/16/23 00:05 O2 Del Method Room Air 11/16/23 00:05 BMI result Body Mass Index 26.9 Vital signs have been reviewed and appear to be correct. Blood pressure elevated. Heart rate normal. Respiratory rate normal. Temperature normal. Oxygen saturation normal. Appearance: Alert. Oriented X3. No acute distress. Head: Normal external exam. Normocephalic. Atraumatic. No Leyva signs noted. No raccoon eyes noted Eyes: PERRLA. EOMI. Conjunctiva and sclera normal. Eyelids normal. ENT: TM's Normal. Pharynx normal. Uvula midline. Moist mucous membranes. No trismus noted. No drooling noted. No muffled voice noted. Neck: Normal inspection. Neck supple. FROM. No adenopathy. Thyroid Normal. No meningeal signs. No neck mass noted. CVS: Normal heart rate and rhythm. Heart sound normal. No murmurs noted. Pulses normal throughout. Respiratory: No respiratory distress. Painless inspiration. Breath sounds normal. No wheezes/rales/rhonchi noted. Chest nontender. No accessory muscle usage noted or decreased air movement noted. Abdomen: Soft and nontender. Bowel sounds normal in all 4 quadrants. No distention noted. No organomegaly noted. No visible injury noted. Back: No CVA tenderness. Full range of motion noted. Skin: Skin warm and dry. Normal skin color. Normal skin turgor. No rashes/lesions/lacerations noted. Extremities: No lower extremity edema. Extremities exhibit normal range of motion. Extremities nontender. Neuro: Oriented X 3. Cranial nerve exam: II-XII are grossly intact No motor deficit. No sensory deficit. Reflexes normal. Course Reevaluation(s) Reevaluation #1: Repeat exam show no abdominal tenderness, patient feels slightly better, still unable to tolerate p.o. challenge, will continue with hydration and antinausea medication then will retry p.o. challenge, the case signed out to Dr. Alexandra to reassess the patient and dispo when he feels better. Time: 02:00 Medications Administered Generic Name Dose Route Start Last Admin Trade Name Freq PRN Reason Stop Dose Admin Sodium Chloride 1,000 mls @ 999 mls/hr 11/16/23 00:44 11/16/23 01:09 Ns IV 11/16/23 01:44 999 mls/hr .Q1H1M ONE Administration Discontinued Medications Generic Name Dose Route Start Last Admin Trade Name Freq PRN Reason Stop Dose Admin Famotidine 20 mg 11/16/23 00:44 11/16/23 01:08 Famotidine/Pf 20 Mg/2 Ml Vial IVPUSH 11/16/23 00:45 20 mg ONCE ONE Administration Ondansetron HCl 4 mg 11/16/23 00:44 11/16/23 01:08 Ondansetron Hcl 4 Mg/2 Ml Vial IVPUSH 11/16/23 00:45 4 mg ONCE ONE Administration Medical Decision Making Differential Diagnosis Differential Diagnoses: The differential diagnosis associated with the presentation includes (Food poisoning, gastroenteritis, dehydration, electrolyte abnormality, severe anemia, acute appendicitis, gastritis, gallbladder disease.) Admission/Observation Consideration of admission/observation: Escalation of care including admission/observation considered Lab Data MDM Lab Attestation statement: I reviewed the patient's lab results. 11/16/23 00:27 11/16/23 00:27 Labs: Lab Results 11/16/23 Range/Units 00:27 WBC 10.5 (4.8-10.8) X10*3/uL RBC 5.50 (4.60-5.80) X10*6/uL Hgb 15.1 (14.0-18.0) g/dl Hct 45.9 (42.0-52.0) % MCV 83.5 (80.0-98.0) fL MCH 27.5 (27.0-33.0) pg MCHC 32.9 (31.0-36.0) g/dl RDW 13.6 (11.0-16.0) % Plt Count 276 D (160-400) X10*3/uL MPV 9.4 (9.4-12.4) fL Immature Gran % (Auto) 0.3 (0.0-0.4) % Neut % (Auto) 62.2 (45-73) % Lymph % (Auto) 29.3 (20-40) % Harper % (Auto) 7.5 (2-11) % Eos % (Auto) 0.4 (0-4) % Baso % (Auto) 0.3 (0-2) % Lymph # (Auto) 3.1 (1.2-4.9) X10*3/uL Harper # (Auto) 0.8 (0.1-1.2) X10*3/uL Eos # (Auto) 0.0 (0.0-0.4) X10*3/uL Baso # (Auto) 0.0 (0.0-0.2) X10*3/uL Abs Immat Gran (auto) 0.03 (0.00-0.03) X10*3/uL Absolute Neuts (auto) 6.5 (2.0-8.3) x10*3/uL Absolute Nucleated RBC 0.000 (0.0-0.012) X10*3/uL Nucleated RBC % (auto) 0.0 (0.0-0.2) /100WBC Sodium 141 (135-145) mmol/L Potassium 3.6 (3.3-5.1) mmol/L Chloride 105 (96-108) mmol/L Carbon Dioxide 23 (22-29) mmol/L Anion Gap 17 (12-20) BUN 21 H (9-16) mg/dL Creatinine 1.09 (0.5-1.4) mg/dL Estim Creat Clear Calc 90.2 Estimated GFR > 60 Random Glucose 111 (60-115) mg/dL Calcium 9.9 D (8.4-10.2) mg/dL Total Bilirubin 0.5 (0.0-1.0) mg/dL Direct Bilirubin 0.2 (0.0-0.5) mg/dL AST 23 (5-37) U/L ALT 26 (0-40) U/L Alkaline Phosphatase 99 (39-117) U/L Total Protein 8.0 (6.5-8.0) g/dL Albumin 4.9 (3.5-5.0) g/dL Lipase 11 (8-78) U/L Influenza Type A (PCR) NEGATIVE (Negative) Influenza Type B (PCR) NEGATIVE (Negative) RSV RNA Qual (PCR) NEGATIVE (Negative) SARS-CoV-2 RNA (RT-PCR) NEGATIVE (Negative) Discharge Plan Discharge Clinical Impression: Gastroenteritis Patient Disposition: Still a Patient Instructions: Gastroenteritis (ED) Prescriptions: No Action penicillin V potassium 500 mg tablet 1,000 mg PO BID 10 Days Qty: 40 0RF prednisone 20 mg tablet 60 mg PO DAILY 4 Days Qty: 12 0RF cetirizine 10 mg tablet 10 mg PO DAILY PRN (Reason: allergy symptoms) Qty: 10 0RF ibuprofen 400 mg tablet 400 mg PO Q6H PRN (Reason: pain) Qty: 20 0RF
[2023-11-16] MEDS: ondansetron HCL 4 MG/2 ML VIAL IVPUSH (01:08)
[2023-11-16] MEDS: Famotidine/PF 20 MG/2 ML VIAL IVPUSH (01:08)
[2023-11-16 01:09] LABS: Influenza A PCR NEGATIVE (Negative); Influenza B PCR NEGATIVE (Negative); Resp Syncy Virus RNA Qual PCR NEGATIVE (Negative); SARS COV2 PCR INHOUSE NEGATIVE (Negative)
[2023-11-16] MEDS: 0.9 % Sodium Chloride 1,000 ML 999 ML IV (01:09)
--- NOTE | 2023-11-16 01:21 | PC.NURSE ---
Patient is Mexican speaking a 28 year old male presenting to ED for evaluation of vomiting and diarrhea x4 days. Diarrhea started night and vomiting started wednesday morning. Patient c/o upper abdominal pain. He reports exposure to a family member who is sick with a similar symptoms. Patient was tachy at triage. EKG completed by transportation engineering technician, patient placed on cardiac monitor technician HR 88-91 normal sinus rhythm. 20 G IV line placed in L AC. Patient medicated per JAN. Patient resting in a stretcher bed, watching TV call reyes within patient reach.
[2023-11-16 02:28] VITALS: BP 130/76; PULSE 88; RESP 16; TEMP 36.7; O2SAT 98
--- NOTE | 2023-11-16 02:28 | PC.NURSE ---
Patient provided crackers and apple juice for PO trial, patient tolerated well, no c/o nausea/vomiting/diarrhea/abdominal pain.
== END 2023-11-16 02:31 | disposition home or self-care (01) ==
PROVIDERS: Emergency Provider Emergency Medicine
DX: K52.9 Noninfective gastroenteritis and colitis, unspecified (principal); R11.2 Nausea with vomiting, unspecified; R10.13 Epigastric pain; R00.0 Tachycardia, unspecified; Z20.822 Contact with and (suspected) exposure to COVID-19; Z20.828 Contact with and (suspected) exposure to other viral communicable diseases; Z79.899 Other long term (current) drug therapy
CPT/HCPCS: 0241U; 36415; 80053; 82248; 83690; 85025; 93005; 96374; 96375; 99284; 99285; J2405

== ENCOUNTER → 2023-11-16 00:13 | Outpatient (BNV) | payer MEDICAID, SELFPAY | PROVIDERS: Emergency Provider Emergency Medicine; Visit Provider Internal Medicine | DX: R00.0 Tachycardia, unspecified (principal) | CPT/HCPCS: 93010 ==

== ENCOUNTER 2024-03-05 08:07 | Emergency (ER) | payer MEDICAID, SELFPAY ==
--- NOTE | ~2024-03-05 | XR_ITS ---
EXAMINATION: XR CHEST CLINICAL INFORMATION: Cough COMPARISON: 11/24/2021 TECHNIQUE: Frontal view of the chest was obtained. FINDINGS: No significant abnormality is noted involving the heart, lungs, mediastinum, bony thorax or soft tissues. XR/XR chest 1V IMPRESSION: Unremarkable examination.
[2024-03-05 08:15] VITALS: BP 127/85; PULSE 82; RESP 16; TEMP 37.1; O2SAT 98; BMI 27.1
--- NOTE | 2024-03-05 08:41 | ED_ITS ---
HPI - General Adult General Chief complaint: General Medical Stated complaint: Flu symptoms Time Seen by Provider: 03/05/24 08:30 Source: patient Mode of arrival: ambulatory Limitations: no limitations History of Present Illness HPI narrative: This is a 29-year-old male without known medical history presenting to the emergency department with fatigue, malaise, myalgias, dry cough, facial congestion, fevers, chills, muscle aches and pains ongoing for a little bit over a week. Patient reports symptoms do not seem to be improving. With bothering him most is the cough. Denies sick contacts. Denies chest pain, shortness of breath, wheezing, nausea, vomiting, abdominal pain, diarrhea, headache, vision changes, dizziness and weakness Related Data Previous Rx's ?Medication ?Instructions ?Recorded cetirizine 10 mg tablet 10 mg PO DAILY PRN allergy 12/04/21 symptoms #10 tabs penicillin V potassium 500 mg 1,000 mg (2 x 500 mg) PO BID 10 12/04/21 tablet days #40 tabs prednisone 20 mg tablet 60 mg (3 x 20 mg) PO DAILY 4 days 12/04/21 #12 tabs ibuprofen 400 mg tablet 400 mg PO Q6H PRN pain #20 tabs 12/09/21 loperamide 2 mg tablet (Imodium 2 mg PO Q6H PRN loose stool #14 11/16/23 A-D) tabs ondansetron 4 mg disintegrating 4 mg PO Q6-8H PRN nausea and 11/16/23 tablet vomiting #7 tabs albuterol sulfate 90 mcg/actuation 2 inh inhalation Q4-6H PRN 03/05/24 breath activated powder inhaler shortness of breath or wheezing #1 ea benzonatate 100 mg capsule 100 mg PO BID PRN cough #20 caps 03/05/24 doxycycline hyclate 100 mg capsule 100 mg PO BID 10 days #20 caps 03/05/24 prednisone 50 mg tablet 50 mg PO DAILY 5 days #5 tabs 03/05/24 Allergies Allergy/AdvReac Type Severity Reaction Status Date / Time No Known Allergies Allergy Verified 03/05/24 08:16 Review of Systems Review of Systems: Yes all other systems are reviewed and are negative PMFSH Past Medical History Attestation statement: The following information was validated with the patient. Source: old records reviewed and nursing notes reviewed Social History Social History Patient Tobacco Use Status: Never used Tobacco Substance Use Type: Marijuana Advance Directives: No Advance Directives Information Provided: Yes Physical Exam ED Vital Signs: Vital Signs - 24 hr 03/05/24 08:15 03/05/24 09:26 Temperature 98.8 F Pulse Rate 82 76 Respiratory Rate 16 16 Blood Pressure 127/85 Pulse Oximetry 98 Oxygen Delivery Method Room Air BMI result Body Mass Index 27.1 vss Appearance: Alert.? Oriented X3.? No acute distress.? Head: Normocephalic, atraumatic, no step-offs or deformities Eyes: Pupils equal, round and reactive to light.? CVS: Normal heart rate and rhythm.? Pulses normal.? Respiratory: No respiratory distress.? Breath sounds normal.? Abdomen: Soft and nontender.? Skin: Skin warm and dry.? Normal skin color.? Normal skin turgor.? Extremities: No lower extremity edema.? No calf ttp. 5/5 strength to bilateral upper and lower extremities Neuro: Oriented X 3.? No motor deficit.? No sensory deficit. CN 2-12 intact Course Reevaluation(s) Reevaluation #1: Viral testing negative. CXR unremarkable. Time: 09:42 Medications Administered Discontinued Medications Generic Name Dose Route Start Last Admin Trade Name Freq PRN Reason Stop Dose Admin Albuterol Sulfate 5 mg/ 0 mg 03/05/24 09:19 03/05/24 09:25 Albuterol/Ipratropium 3 ml INHALE 03/05/24 09:20 7.5 each ONCE ONE Administration Medical Decision Making Medical Decision Making MDM Narrative: 29-year-old male presents with viral symptoms for the past week or so. Reports they are not improving. Denies sick contacts Physical exam benign History and physical exam concerning for bronchitis versus flu versus COVID versus RSV vs pneumonia. Unlikely PE, ACS, acute respiratory distress. Unlikely metabolic derangements. Unlikely urinary tract infection Plan at this time will obtain viral testing Differential Diagnosis Differential Diagnoses: The differential diagnosis associated with the presentation includes History and physical exam concerning for bronchitis versus flu versus COVID versus RSV vs pneumonia. Unlikely PE, ACS, acute respiratory distress. Unlikely metabolic derangements. Unlikely urinary tract infection Admission/Observation Consideration of admission/observation: Escalation of care including admission/observation considered Unlikey Lab Data Labs: Lab Results 03/05/24 Range/Units 08:20 Influenza Type A (PCR) NEGATIVE (Negative) Influenza Type B (PCR) NEGATIVE (Negative) RSV RNA Qual (PCR) NEGATIVE (Negative) SARS-CoV-2 RNA (RT-PCR) NEGATIVE (Negative) Independent Interpretation I performed an independent interpretation of an: Plain X-Ray Radiology Impression Discussion of test interpretation with radiology: I have reviewed the radiologist's reading. External Record Review External record reviewed: Office record, Outpatient record and Prior outpatient labs Prescription Management I considered prescription management with: Other Chronic Conditions Denies Critical Care Time Critical Care Time Critical Care Time: No Discharge Plan Discharge Clinical Impression: Acute bronchitis Patient Disposition: Home, Self-Care Instructions: Acute Bronchitis (ED) Additional Instructions: Take your medications as prescribed. If you were prescribed antibiotics today, it is important that you take your medication to their entirety, do not skip any doses, do not finish them early. Follow-up with your primary care provider this week. Return to the emergency department with new or worsening symptoms. Such as fevers, chills, chest pain, shortness of breath, nausea, vomiting, dizziness, headache, vision changes, lethargy In case of emergency call 911 Prescriptions: New benzonatate 100 mg capsule 100 mg PO BID PRN (Reason: cough) Qty: 20 0RF albuterol sulfate 90 mcg/actuation aerosol powdr breath activated 2 inh inhalation Q4-6H PRN (Reason: shortness of breath or wheezing) Qty: 1 0RF doxycycline hyclate 100 mg capsule 100 mg PO BID 10 Days Qty: 20 0RF prednisone 50 mg tablet 50 mg PO DAILY 5 Days Qty: 5 0RF No Action penicillin V potassium 500 mg tablet 1,000 mg PO BID 10 Days Qty: 40 0RF prednisone 20 mg tablet 60 mg PO DAILY 4 Days Qty: 12 0RF cetirizine 10 mg tablet 10 mg PO DAILY PRN (Reason: allergy symptoms) Qty: 10 0RF ibuprofen 400 mg tablet 400 mg PO Q6H PRN (Reason: pain) Qty: 20 0RF loperamide [Imodium A-D] 2 mg tablet 2 mg PO Q6H PRN (Reason: loose stool) Qty: 14 0RF ondansetron 4 mg tablet,disintegrating 4 mg PO Q6-8H PRN (Reason: nausea and vomiting) Qty: 7 0RF Referrals: Physician,None [Primary Care Provider] - 2 days Stand Alone Forms: Work/School Release Print Language: Latvian
[2024-03-05 09:00] LABS: Influenza A PCR NEGATIVE (Negative); Influenza B PCR NEGATIVE (Negative); Resp Syncy Virus RNA Qual PCR NEGATIVE (Negative); SARS COV2 PCR INHOUSE NEGATIVE (Negative)
[2024-03-05] MEDS: Albuterol Sulfate 5 MG, Albuterol/Iprat 2.5/0.5MG 3 ML 3 ML INHALE (09:25)
[2024-03-05 09:26] VITALS: PULSE 76; RESP 16; O2SAT 93
[2024-03-05 10:03] VITALS: BP 139/82; PULSE 80; RESP 16; TEMP 36.7; O2SAT 97
== END 2024-03-05 10:04 | disposition home or self-care (01) ==
PROVIDERS: Emergency Provider Student in an Organized Health Care Education/Training Program
DX: J20.9 Acute bronchitis, unspecified (principal)
CPT/HCPCS: 0241U; 71045; 94640; 99283; 99284

== ENCOUNTER 2024-04-11 08:52 | Emergency (ER) | payer MEDICAID, SELFPAY ==
[2024-04-11 09:00] VITALS: BP 127/86; PULSE 86; RESP 17; TEMP 37; O2SAT 98; BMI 31.0
[2024-04-11] MEDS: Ondansetron ODT 4 MG TAB.RAPDIS TRANSLINGU (09:07)
[2024-04-11 09:13] LABS: MANUAL DIFF FLAG NO
[2024-04-11 09:23] LABS: Basophils Percent Auto 0.5 % (0-2); Eosinophils Absolute Auto 0.2 X10*3/uL (0.0-0.4); Eosinophils Percent Auto 2.2 % (0-4); Hematocrit 43.3 % (42.0-52.0); Hemoglobin 14.8 g/dl (14.0-18.0); Imm Gran Abs Auto 0.02 X10*3/uL (0.00-0.03); Imm Gran Pct Auto 0.2 % (0.0-0.4); Lymphocytes Absolute Auto 2.6 X10*3/uL (1.2-4.9); Lymphocytes Percent Auto 29.9 % (20-40); Mean Corpuscular HGB Conc 34.2 g/dl (31.0-36.0); Mean Corpuscular Hemoglobin 28.6 pg (27.0-33.0); Mean Corpuscular Volume 83.8 fL (80.0-98.0); Mean Platelet Volume 9.7 fL (9.4-12.4); Monocytes Absolute Auto 0.6 X10*3/uL (0.1-1.2); Monocytes Percent Auto 7.5 % (2-11); Neutrophils Absolute Auto 5.1 x10*3/uL (2.0-8.3); Neutrophils Percent Auto 59.7 % (45-73); Platelet Count 226 X10*3/uL (160-400); Red Blood Count 5.17 X10*6/uL (4.60-5.80); Red Cell Distribution Width 13.8 % (11.0-16.0); White Blood Count 8.5 X10*3/uL (4.8-10.8)
[2024-04-11 09:47] LABS: Alanine Aminotransferase 22 U/L (0-40); Albumin Level 4.2 g/dL (3.5-5.0); Alkaline Phosphatase 99 U/L (39-117); Anion Gap 13 (12-20); Aspartate Amino Transferase 19 U/L (5-37); Bilirubin Direct < 0.2 mg/dL (0.0-0.5); Bilirubin Total 0.2 mg/dL (0.0-1.0); Blood Urea Nitrogen 13 mg/dL (9-16); Calcium 9.2 mg/dL (8.4-10.2); Carbon Dioxide 23 mmol/L (22-29); Chloride 110 mmol/L (96-108); Creatinine Clr Calc Pharmacy 111.8; Estimated Glomerular Filt Rate > 60; Glucose Random 105 mg/dL (60-115); Lipase 25 U/L (8-78); Potassium 3.9 mmol/L (3.3-5.1); Sodium 142 mmol/L (135-145)
[2024-04-11 09:53] LABS: Influenza A PCR NEGATIVE (Negative); Influenza B PCR NEGATIVE (Negative); Resp Syncy Virus RNA Qual PCR NEGATIVE (Negative); SARS COV2 PCR INHOUSE NEGATIVE (Negative)
--- NOTE | 2024-04-11 10:29 | ED.NAVMDI ---
HPI - Nausea/Vomiting/Diarrhea General Chief complaint: Abdominal Pain Stated complaint: Abd pain/Vomiting Time Seen by Provider: 04/11/24 10:21 Source: patient, RN notes reviewed and old records reviewed Mode of arrival: ambulatory Limitations: no limitations History of Present Illness ED Provider: Elizabeth Junior PA-C HPI Narrative: 29-year-old male presents to the ER for evaluation of nausea, vomiting, LUQ abdominal pain for the last 4 days. He states he has a family member at home w/ pneumonia and fevers but no GI symptoms. He states when his symptoms 1st started 4 days ago he had a few episodes of loose watery stools but has since resolved. He reports having a normal bowel movement today, no blood. No constipation. Denies any fever or chills. He states he has ongoing burning left upper quadrant pain, nausea, recurrent vomiting. No chest pain, shortness for breath but he does have runny nose and nasal congestion. When his nose gets stuffy he does have some difficulty breathing. MD elicited complaint: nausea, vomiting and abdominal pain Onset (ago): day(s) (4) Associated nausea: Yes Associated abdominal pain: Yes Location of pain: LUQ Radiation: diffuse Pain consistency: intermittent Severity: moderate Quality: cramping and aching Exacerbating factors: eating Relieving factors: none Associated symptoms: cough, loss of appetite, malaise, nausea/vomiting and shortness of breath Related Data Previous Rx's ?Medication ?Instructions ?Recorded cetirizine 10 mg tablet 10 mg PO DAILY PRN allergy 12/04/21 symptoms #10 tabs penicillin V potassium 500 mg 1,000 mg (2 x 500 mg) PO BID 10 12/04/21 tablet days #40 tabs prednisone 20 mg tablet 60 mg (3 x 20 mg) PO DAILY 4 days 12/04/21 #12 tabs ibuprofen 400 mg tablet 400 mg PO Q6H PRN pain #20 tabs 12/09/21 loperamide 2 mg tablet (Imodium 2 mg PO Q6H PRN loose stool #14 11/16/23 A-D) tabs ondansetron 4 mg disintegrating 4 mg PO Q6-8H PRN nausea and 11/16/23 tablet vomiting #7 tabs albuterol sulfate 90 mcg/actuation 2 inh inhalation Q4-6H PRN 03/05/24 breath activated powder inhaler shortness of breath or wheezing #1 ea benzonatate 100 mg capsule 100 mg PO BID PRN cough #20 caps 03/05/24 doxycycline hyclate 100 mg capsule 100 mg PO BID 10 days #20 caps 03/05/24 prednisone 50 mg tablet 50 mg PO DAILY 5 days #5 tabs 03/05/24 ondansetron 4 mg disintegrating 4 mg PO DAILY PRN nausea and 04/11/24 tablet vomiting #7 tabs pantoprazole 40 mg tablet,delayed 40 mg PO DAILY #10 tabs 04/11/24 release (Protonix) Allergies Allergy/AdvReac Type Severity Reaction Status Date / Time No Known Allergies Allergy Verified 04/11/24 09:02 Review of Systems Review of Systems: Yes all other systems are reviewed and are negative Gastrointestinal: Gastrointestinal: Reports nausea PMFSH Social History Social History Patient Tobacco Use Status: Never used Tobacco Substance Use Type: Marijuana Advance Directives: No Advance Directives Information Provided: Yes Physical Exam Vital Signs: Vital Signs: Last Vital Signs Temp 98.1 F 04/11/24 11:32 Pulse 78 04/11/24 11:32 Resp 18 04/11/24 11:32 BP 127/75 04/11/24 11:32 Pulse Ox 98 04/11/24 11:32 O2 Del Method Room Air 04/11/24 11:32 BMI result Body Mass Index 31.0 Appearance: Alert. Oriented X3. Appears uncomfortable. Head: normocephalic, atraumatic. Eyes: Pupils equal, round and reactive to light. ENT: Pharynx normal. No tonsillar swelling or exudate. Neck: Normal inspection. Neck supple. CVS: Normal heart rate and rhythm. Pulses normal. Respiratory: No respiratory distress. Breath sounds normal. Abdomen: Soft, LUQ with mild tenderness to deep palpation, no epigastric, RUQ, RLQ or LLQ tenderness, no reboung or guarding, normal active +BS x4 Skin: Skin warm and dry. Normal skin color. Normal skin turgor. No rashes. Extremities: No lower extremity edema. No joint swelling. Neuro/psych: Oriented X 3. No motor deficit. No sensory deficit. CN II-XII intact. Normal speech and cognition. Medications Administered Discontinued Medications Generic Name Dose Route Start Last Admin Trade Name Freq PRN Reason Stop Dose Admin Al Hydroxide/Mg Hydroxide 30 ml 04/11/24 10:43 04/11/24 11:11 Magnesium Hydrox/Alum Hydrox 30 Ml Oral.Susp PO 04/11/24 10:44 30 ml ONCE ONE Administration Belladonna Alkaloids/Phenobarbital 10 ml 04/11/24 10:43 04/11/24 11:11 Phenobarb/Hyoscy/Atropine/Scop 10 Ml Elixir PO 04/11/24 10:44 10 ml ONCE ONE Administration Famotidine 20 mg 04/11/24 10:43 04/11/24 11:12 Famotidine 20 Mg Tablet PO 04/11/24 10:44 20 mg ONCE ONE Administration Lidocaine HCl 15 ml 04/11/24 10:43 04/11/24 11:11 Lidocaine Hcl Viscous 2 % 15 Ml Solution MUCOUS MEM 04/11/24 10:44 15 ml ONCE ONE Administration Ondansetron HCl 4 mg 04/11/24 09:03 04/11/24 09:07 Ondansetron Odt 4 Mg Tab.Rapdis TRANSLINGU 04/11/24 09:04 4 mg ONCE ONE Administration Medical Decision Making Medical Decision Making [facility] Narrative: 29-year-old male presents to the ER for evaluation of nausea, vomiting, left upper quadrant abdominal pain for the last 4 days. Positive sick contacts at home, although they do not have GI symptoms. On arrival to the ER his vital signs are stable. His abdominal exam is benign with only isolated left upper quadrant tenderness to deep palpation only. His lab workup was reassuring with normal CBC, normal LFTs, normal lipase. His pain is isolated to his left upper quadrant without any history of any trauma. most likely gastritis verses viral gastroenteritis. Patient was given sublingual Zofran, GI cocktail and Pepcid. He is refusing IV line and fluids. Tolerated oral meds here and is feeling better. he would like to go home. comfortable w/ discharge, supportive care. prn zofran. return precautions discussed. Differential Diagnosis Differential Diagnoses: The differential diagnosis associated with the presentation includes Gastroenteritis, gastritis, PUD, cholecystitis, pancreatitis, dehydration, metabolic derangement Admission/Observation Consideration of admission/observation: Escalation of care including admission/observation considered Lab Data [facility] Lab Attestation statement: I reviewed the patient's lab results. 04/11/24 09:10 04/11/24 09:10 Labs: Lab Results 04/11/24 04/11/24 Range/Units 09:08 09:10 WBC 8.5 (4.8-10.8) X10*3/uL RBC 5.17 (4.60-5.80) X10*6/uL Hgb 14.8 (14.0-18.0) g/dl Hct 43.3 (42.0-52.0) % MCV 83.8 (80.0-98.0) fL MCH 28.6 (27.0-33.0) pg MCHC 34.2 (31.0-36.0) g/dl RDW 13.8 (11.0-16.0) % Plt Count 226 (160-400) X10*3/uL MPV 9.7 (9.4-12.4) fL Immature Gran % (Auto) 0.2 (0.0-0.4) % Neut % (Auto) 59.7 (45-73) % Lymph % (Auto) 29.9 (20-40) % [place] % (Auto) 7.5 (2-11) % Eos % (Auto) 2.2 (0-4) % Baso % (Auto) 0.5 (0-2) % Lymph # (Auto) 2.6 (1.2-4.9) X10*3/uL [place] # (Auto) 0.6 (0.1-1.2) X10*3/uL Eos # (Auto) 0.2 (0.0-0.4) X10*3/uL Baso # (Auto) 0.0 (0.0-0.2) X10*3/uL Abs Immat Gran (auto) 0.02 (0.00-0.03) X10*3/uL Absolute Neuts (auto) 5.1 (2.0-8.3) x10*3/uL Absolute Nucleated RBC 0.000 (0.0-0.012) X10*3/uL Nucleated RBC % (auto) 0.0 (0.0-0.2) /100WBC Sodium 142 (135-145) mmol/L Potassium 3.9 (3.3-5.1) mmol/L Chloride 110 H (96-108) mmol/L Carbon Dioxide 23 (22-29) mmol/L Anion Gap 13 (12-20) BUN 13 (9-16) mg/dL Creatinine 0.90 (0.5-1.4) mg/dL Estim Creat Clear Calc 111.8 Estimated GFR > 60 Random Glucose 105 (60-115) mg/dL Calcium 9.2 D (8.4-10.2) mg/dL Total Bilirubin 0.2 (0.0-1.0) mg/dL Direct Bilirubin < 0.2 (0.0-0.5) mg/dL AST 19 (5-37) U/L ALT 22 (0-40) U/L Alkaline Phosphatase 99 (39-117) U/L Total Protein 7.0 (6.5-8.0) g/dL Albumin 4.2 (3.5-5.0) g/dL Lipase 25 (8-78) U/L Influenza Type A (PCR) NEGATIVE (Negative) Influenza Type B (PCR) NEGATIVE (Negative) RSV RNA Qual (PCR) NEGATIVE (Negative) SARS-CoV-2 RNA (RT-PCR) NEGATIVE (Negative) External Record Review External record reviewed: Outpatient record, Prior outpatient labs and Prior outpatient radiology Tests considered The following testing was considered but not selected: CT scan of the abd/pelvis considered. but abd exam benign Prescription Management I considered prescription management with: Pain Medication Critical Care Time Critical Care Time Critical Care Time: No Discharge Plan Discharge Clinical Impression: Gastroenteritis Patient Disposition: Home, Self-Care Instructions: Acute Nausea and Vomiting (ED) Additional Instructions: You lab workup today was unremarkable. You tested negative for COVID, Flu and RSV You most likely have a viral GI bug also known as gastroenteritis. Treatment is supportive care, symptoms usually resolve on their own in 48-72 hours. Recommend rest and plenty of oral hydration. Stick to a bland diet like soup and toast while you are not feeling well. Take the prescribed medication as needed for nausea. Recommend over the counter Pepto Bismol or Imodium for upset stomach and diarrhea. Follow up with your doctor as needed. If you develop new or worsening symptoms call 911 or come back to the ER for further evaluation. Prescriptions: New ondansetron 4 mg tablet,disintegrating 4 mg PO DAILY PRN (Reason: nausea and vomiting) Qty: 7 0RF pantoprazole [Protonix] 40 mg tablet,delayed release (DR/EC) 40 mg PO DAILY Qty: 10 0RF No Action penicillin V potassium 500 mg tablet 1,000 mg PO BID 10 Days Qty: 40 0RF prednisone 20 mg tablet 60 mg PO DAILY 4 Days Qty: 12 0RF cetirizine 10 mg tablet 10 mg PO DAILY PRN (Reason: allergy symptoms) Qty: 10 0RF ibuprofen 400 mg tablet 400 mg PO Q6H PRN (Reason: pain) Qty: 20 0RF loperamide [Imodium A-D] 2 mg tablet 2 mg PO Q6H PRN (Reason: loose stool) Qty: 14 0RF ondansetron 4 mg tablet,disintegrating 4 mg PO Q6-8H PRN (Reason: nausea and vomiting) Qty: 7 0RF benzonatate 100 mg capsule 100 mg PO BID PRN (Reason: cough) Qty: 20 0RF albuterol sulfate 90 mcg/actuation aerosol powdr breath activated 2 inh inhalation Q4-6H PRN (Reason: shortness of breath or wheezing) Qty: 1 0RF doxycycline hyclate 100 mg capsule 100 mg PO BID 10 Days Qty: 20 0RF prednisone 50 mg tablet 50 mg PO DAILY 5 Days Qty: 5 0RF Stand Alone Forms: Work/School Release Interventions: ED Discharge Assessment Last Done: 04/11/24 11:32 Discharge Date/Time: 04/11/24 11:33 Print Language: Lao
[2024-04-11] MEDS: Magnesium Hydrox/Alum Hydrox 30 ML ORAL.SUSP PO (11:11)
[2024-04-11] MEDS: Lidocaine HCl Viscous 2 % 15 ML SOLUTION MUCOUS MEM (11:11)
[2024-04-11] MEDS: PHENobarb/Hyoscy/Atropine/Scop 10 ML ELIXIR PO (11:11)
[2024-04-11] MEDS: Famotidine 20 MG TABLET PO (11:12)
[2024-04-11 11:32] VITALS: BP 127/75; PULSE 78; RESP 18; TEMP 36.7; O2SAT 98
== END 2024-04-11 11:33 | disposition home or self-care (01) ==
PROVIDERS: Emergency Provider Emergency Medicine
DX: K52.9 Noninfective gastroenteritis and colitis, unspecified (principal)
CPT/HCPCS: 0241U; 80048; 80076; 83690; 85025; 99283